=== PATIENT | male | born 1960 | race Caucasian/White ===

== ENCOUNTER → 2017-07-27 | Outpatient (CLI) | payer BC ==
[~2017-07-27] MED LIST: ALBU1.25 NEB; ASPI-621 PO; ATEN25TA PO; LISI-170 PO; LOVA20TA68 PO; MELO15TA24 PO; METH4TAB2 PO; OMEP40CA6 PO; OXYC10TA6 PO; UMEC62.5 INH
== END | disposition home or self-care (01) ==
LOC: CFH 14:57
PROVIDERS: ATTEND Internal Medicine Cardiovascular Disease
DX: R07.9 Chest pain, unspecified (principal); I10 Essential (primary) hypertension; I25.2 Old myocardial infarction; E78.5 Hyperlipidemia, unspecified
CPT/HCPCS: 93306